=== PATIENT | female | born 1995 ===

== ENCOUNTER 2024-05-28 09:22 | Outpatient (CLI) | payer BC, SELFPAY ==
--- NOTE | ~2024-05-28 | US_ITS ---
US breast LT complete 05/28/2024 09:39 Indication: Breast pain. Procedure: High-resolution complete ultrasound of the left breast including all 4 quadrants in the dave bareolar location. Comparison: No prior studies for comparison. Findings: There is normal heterogeneous echotexture. There is a small 4 mm cyst of the left breast at 3:00, 5 cm from the nipple. No suspicious masses are identified to suggest malignancy. Impression: 1: No sonographic evidence for malignancy in the left breast. BI-RADS CATEGORY 2 - BENIGN FINDINGS Reviewed, dictated and finalized at location B. MACHINE OPERATOR Impression: 1: No sonographic evidence for malignancy in the left breast. BI-RADS CATEGORY 2 - BENIGN FINDINGS
== END 2024-05-28 09:23 | disposition home or self-care (01) ==
PROVIDERS: PCP Nurse Practitioner Women's Health; Visit Provider Nurse Practitioner Women's Health
DX: N64.4 Mastodynia (principal)
CPT/HCPCS: 76641